=== PATIENT | male | born 1990 | race African-American/Black ===

== ENCOUNTER 2022-01-22 00:50 | Emergency (ER) | payer OTHER, SELFPAY ==
[2022-01-22] MEDS ORDERED: Bacitracin 1 PK ONE (01:36)
== END 2022-01-22 01:43 | disposition home or self-care (01) ==
LOC: CSHERS 00:50
DX: S61.451A Open bite of right hand, initial encounter (principal); Z23 Encounter for immunization; W54.0XXA Bitten by dog, initial encounter